=== PATIENT | female | born 1990 ===

== ENCOUNTER 2019-09-25 22:15 | Inpatient (IN) | payer OTHER ==
[~2019-09-25] VITALS: Ht 175.3 cm; Wt 98.9 kg
[2019-09-25] MEDS ORDERED: VENTOLIN HFA [SP8 GM (23:27)
[2019-09-25] MEDS ORDERED: LEVOTHYROXINE150 MCG PO (23:27)
[2019-09-25 23:28] VITALS: BP 160/96; Ht 175.3 cm; Wt 98.9 kg
[2019-09-26] VITALS (15 sets, daily range): BP systolic 114–143; BP diastolic 62–92
[2019-09-26 00:44] LABS: HEMATOCRIT 33.2 % (36.0-48.0); HEMOGLOBIN 10.1 g/dL (12-16); MCH 24.1 pg (26.0-34.0); MCHC 30.4 g/dL (31.0-37.0); MCV 79.2 fL (80.0-100.0); MEAN PLATELET VOLUME 9.5 fL (7.4-10.4); RBC 4.19 10x6/uL (4.00-5.40); RDW 16.2 % (11.5-14.5); WBC 12.4 10x3/uL (4.8-10.8)
--- NOTE | 2019-09-26 03:25 | NUR ---
PT BROUGHT TO ROOM FROM RECOVERY AFTER A C SECTION DELIVERING TWINS. SHE HAS LITTLE FEELING IN ABD AREA NOW SO NO C/P PAIN. INCISION IS CLEAN AND DRY. LOCHIA IS SMALL. FUNDUS IS FIRM 2-3 FINGERS DOWN. SHE HAS IV PIT RUNNING AT 125ML/HR. SHE IS DRINKIN WATER AND HAS NO N/V.
--- NOTE | 2019-09-26 05:49 | NUR ---
PT HAS STARTED HURTING RATING HER PAIN A 9. CALLED DR. ADAMSON FOR PAIN MEDS TO BE ORDERED. PT WAS GIVEN 1 MG OF DILAUDID IV AND TORADOL 30 MG IV. SHE IS RESTING IN HER ROOM. SHE HAS BEEN GIVEN AN INCENTIVE SPIROMENTER AND INSTRUCTIONS GIVEN. SHE IS TRYING TO COUGH AND THIS HURTS. I GAVE HER A PILLOW TO SPLINT HER INCISION.
--- NOTE | 2019-09-26 06:17 | NUR ---
PT IS FEELING A LITTLE BETTER NOW AFTER PAIN MED. SHE IS RESTING QUIETLY.
--- NOTE | 2019-09-26 07:26 | NUR ---
DOZING WHEN ENTERED ROOM. PT AWAKENS EASILY AND VERBAL RESDPONSES APPRO TO QUESTIONS. VALDEZ AT WILL. ABD SOFT- BOWEL SOUNDS HYPOACTIVE. NOTED MOD LOCHIA ON PADS. NURSE IN REPORT STATES THAT PAD HAS NOT BEEN CHANGED SINCE ARRIVAL. ALLL PADS CHANGED AND DELFINA CARE DONE. PT ABLE TO MOVE SELF ABOUT IN BED. NO REQUESTS AT THIS TIME. ASSESSMENT AND VS DONE.
--- NOTE | 2019-09-26 08:20 | NUR ---
DR ADAMSON IN ROOM TO SEE PT- PT ASLEEP.
--- NOTE | 2019-09-26 08:46 | NUR ---
VS DONE. SCANT LOCHIA NOTED ON PAD. FUNDUS UU/FIRM. DRANK 550 CC LIQ BREAKFAST.
--- NOTE | 2019-09-26 10:00 | NUR ---
ENTERED ROOM- PT RESTING WITH EYES CLOSED. AWAKENS WHEN NAME CALLED- ASK IF NEEDED ANY PAIN MEDICATION. PT STATES YES AND REQUESTS THE STRONGER DOSE SINCE FIRST DOSE OF 1 MG DID "NOT HELP ALOT". RATES PAIN A 7 ON SCALE OF 0-10.
--- NOTE | 2019-09-26 12:08 | NUR ---
PT AWAKE AND STATES SHE IS READY TO BE NORMALIZED. SPENCER OUT-SALINE LOCK AND PO PAIN MEDS. STATES PAIN IS BETTER-4 ON SCALE OF 0-10.
--- NOTE | 2019-09-26 12:33 | NUR ---
IV CHANGED TO SALINE LOCK- FLUSHED WITH NS. SPENCER CATH REMOVED POST BULB DEFLATED. 1100 CC EMPTIED FROM BAG.
--- NOTE | 2019-09-26 13:09 | NUR ---
AWAKENS WHEN DOOR OPEN- DENIES NEEDS. ATE 100% OF REG DIET.
--- NOTE | 2019-09-26 14:04 | NUR ---
RINGS CALL LIGHT- STATES IS FEELS LIKE SHE IS HAVING TROUBLE BREATHING -STATES HAS ASTHMA AND REQUESTING BREATHING TREATMENT LIKE LAST NIGHT.
--- NOTE | 2019-09-26 14:14 | NUR ---
RT NOTIFIED FOR UPDRAFT. STATES WILL BE HERE SHORTLY.
--- NOTE | 2019-09-26 14:20 | NUR ---
UP TO BATHROOM TO VOID- VOIDED 100CC URINE INTO CONTAINER- SMALL LOCHIA ALSO- PERICARE DONE. RETURNS TO BED. RT HERE FOR EVA KRAUSE.
--- NOTE | 2019-09-26 14:29 | NUR ---
DENIES WANTING PAIN MEDICATION NOW.
--- NOTE | 2019-09-26 14:40 | NUR ---
PT STATES FEELS BETTER AFTER UPDRAFT. PT AMBULATORY TO NURSERY TO SEE BABIES.
--- NOTE | 2019-09-26 15:50 | NUR ---
PT RETURNS TO ROOM. DENIES WANTING ANY PAIN MEDICATION.
--- NOTE | 2019-09-26 16:15 | NUR ---
PT ASLEEP -RESP REG AND EVEN.
--- NOTE | 2019-09-26 17:52 | NUR ---
PT ASLEEP BUT AWAKENS WHEN ENTER ROOM. HAS BEEN UP AND ABOUT IN ROOM. VOIDED 200CC INTO CONTAINER. ENCOURAGED TO DRINK SOME MORE WATER. DENIES NEEDS AT THIS TIME.
--- NOTE | 2019-09-26 19:00 | NUR ---
REPORT GIVEN BY JEN ALARCON RN
--- NOTE | 2019-09-26 19:35 | NUR ---
PT C/O OF PAIN. PERCOCET 10 MG GIVEN PO. PT NEEDED FRESH WATER WHICH WAS SERVED.
--- NOTE | 2019-09-26 20:20 | NUR ---
PT ASSESSMENT COMPLETE. PT IS VERY SLEEPY IN BED. SHE HAS BEEN SLEEPY MOST OF THE DAY. FUNDUS IS FIRM. LOCHIA SMALL. PT WAS UP TO THE BR A LITTLE EARLIER AND VOIDED [address] IN RIGHT ARM. I TOLD THE PT THAT SHE COULD GET UP ANY TIME FOR A SHOWER. I LET HER KNOW THAT WE'D NEED TO TAKE THE DRESSING OF BEFORE. SHE REALLY DID NOT ACT INTERESTED. HER IS IN THE ROOM AND I ENCOURAGED HIM TO GET PT UP TO WALK. EXPLAINED THE REASONS FOR AMBULATING.
--- NOTE | 2019-09-26 22:00 | NUR ---
PT RESTING QUIETLY IN BED. AT BEDSIDE.
[2019-09-27] VITALS (7 sets, daily range): BP systolic 120–142; BP diastolic 77–93
--- NOTE | 2019-09-27 00:45 | NUR ---
VS TAKEN EARLIER AND CHARTED. ASKED PT IF SHE NEEDED TO GET UP TO BATHROOM. I WALKED WITH HER TO THE BR. SHE IS SLOW BUT AMBULATES WELL. SHE VOIDED A LARGE AMT. SHE STATES HER LOCHIA IS SMALL WHEN SHE CHANGED HER PADS IN THE BR. WHEN SHE GOT BACK TO BED SHE WAS SHAKING ALL OVER. I ASKED WHAT WAS WRONG AND SHE SAID THE PAIN LEVEL WAS HIGH AFTER WALKING TO THE BR. SHE RECEIVED PERCOCET 10 MG PO AND TORADOL 3O MG IV FOR PAIN. WHEN I LEFT THE ROOM SHE WAS PLAYING GAMES ON HER TELEPHONE.
--- NOTE | 2019-09-27 02:09 | NUR ---
PT RESTING QUIETLY. NO NEW C/O
--- NOTE | 2019-09-27 04:00 | NUR ---
VS TAKEN AND RECORDED. PT REQUESTED FRESH WATER AND IT WAS DELIVERED
[2019-09-27 05:08] LABS: RAPID PLASMA REAGIN Non Reactive (Non Reactive)
--- NOTE | 2019-09-27 05:46 | NUR ---
PT IS RESTINGI QUIETLY. NO C/O
--- NOTE | 2019-09-27 09:30 | NUR ---
0930 REQUESTING UPDRAFT NOTIFIED BRIE VALDOVINOS WHO INITIATED UPDRAFT INFORMED PATIENT SHE CAN ASK FOR UPDRAFT WHEN DEEMED NEEDED
[2019-09-27 12:06] LABS: HEMATOCRIT 31.4 % (36.0-48.0); HEMOGLOBIN 9.5 g/dL (12-16); LYMPHOCYTES 14.8 % (15-50); MCH 23.8 pg (26.0-34.0); MCHC 30.3 g/dL (31.0-37.0); MCV 78.7 fL (80.0-100.0); MEAN PLATELET VOLUME 8.8 fL (7.4-10.4); NEUTROPHILS 76.6 % (40-80); PLATELET COUNT 328 10x3/uL (130-400); RBC 3.99 10x6/uL (4.00-5.40); RDW 15.6 % (11.5-14.5); WBC 12.3 10x3/uL (4.8-10.8)
--- NOTE | 2019-09-27 12:52 | NUR ---
0700 AWAKE ALERT IN BED SPOUSE ASLEEEP ON COUCH VOICES NO COMPLAINTS AT THIS TIME ASSESSMENT COMPLETE
--- NOTE | 2019-09-27 12:53 | NUR ---
0800 FUNDUS FIRM BELOW UMBILICUS SUTEURED AND DEMABOND USED FOR CLOSURE OF INCISION NO DRAINAGE NOTED
--- NOTE | 2019-09-27 12:57 | NUR ---
0900 DR BURNETT IN ROOM SPEAKING WITH THE PATIENT
--- NOTE | 2019-09-27 12:58 | NUR ---
1014 C/O PAIN 10/28 PERCOCET 5MG PO GIVEN
--- NOTE | 2019-09-27 15:34 | NUR ---
1200 PATIENT RRESTING QUIETLY IN BED. STATED THAT SHE HAD VOIDED 3 TIMES THIS AM
--- NOTE | 2019-09-27 16:09 | NUR ---
1400 BABIES IN ROOM WITH MOTHER AND FATHER
--- NOTE | 2019-09-27 16:18 | NUR ---
1602 C/O INCISIONAL PAIN 12/28 PERCOCET 10MG PO GIVEN
--- NOTE | 2019-09-27 17:29 | NUR ---
1637 REASSESSMENT OF PAIN RELIEF PATIENT STATES HER PAIN IS NOW 3/10 AFTER TAKING PERCOCET 10MG EARLIER
--- NOTE | 2019-09-27 19:12 | NUR ---
RECEIVED SHIFT REPORT FROM DAY SHIFT, INFORMED PT THAT I WILL BE BACK SHORTLY TO DO ASSESSMENT, PT VERBALIZES UNDERSTANDING, DENIES NEEDS AT THIS TIME, INFANTS IN OPEN CRIB CART AT BEDSIDE
--- NOTE | 2019-09-27 20:15 | NUR ---
ASSESSMENT PER FLOW SHEET, VS OBTAINED, SALINE LOCK IN RIGHT FA INTACT WITH NO REDNESS OR EDEMA, FF, ML, U/2, PT REPORTS LITE BLEEDING WITH NO CLOTS, BIKINI INC WIH DERMABOND CDI WITH NO DRAINAGE NOTED, PT REPORTS FLATUS, NO BM, AND VOIDING WITH NO DIFFICULTY, PT RATES INC PAIN 11/27, WILL ADM PAIN MED, PT REQUESTS BREATHING TREATMENT, INFORMED PT THAT I WILL NOTIFY RESP, PT VERBALIZES UNDERSTANDING, BED IN LOW POSITION, SIDE RAILS X 2, CALL LIGHT IN REACH
--- NOTE | 2019-09-27 20:27 | NUR ---
RESP NOTIFIED FOR BREATHING TREATMENT
--- NOTE | 2019-09-27 20:32 | NUR ---
ADM PERCOCET AND MOTRIN PER MD ORDERS, SEE EMAR, WITH FRESH H20, PT DENIES FURTHER NEEDS, FOB AT BEDSIDE AT THIS TIME
--- NOTE | 2019-09-27 21:30 | NUR ---
PT BREATFEEDING GIRL AT THIS TIME, PT RATES INC PAIN AND CRAMPING 3/10, DENIES NEEDS, BOY INFANT IN OPEN CRIB CART AND FOB AT BEDSIDE
--- NOTE | 2019-09-27 22:29 | NUR ---
PT BOY AT THIS TIME, DENIES NEEDS
[2019-09-28 00:10] VITALS: BP 118/77
--- NOTE | 2019-09-28 00:10 | NUR ---
PT RESTING WITH EYES CLOSED, AROUSES TO SOFT VERBAL STIMULATION, VS OBTAINED, PT RATES INC PAIN /, PT DENIES NEEDS AT THIS TIME, INFANTS IN OPEN CRIB CART AND FOB ASLEEP AT BEDSIDE
--- NOTE | 2019-09-28 02:34 | NUR ---
PT AWAKE INFANT GIRL, ADM PERCOCET AND MOTRIN PER MD ORDERS, SEE EMAR, WITH FRESH H20 AND LEMON NAK[place] SODA, PT DENIES FURTHER NEEDS, FOB ASLEEP ON COUCH
--- NOTE | 2019-09-28 04:28 | NUR ---
DR BURNETT ON UNIT, DID ROUNDING, ORDER FOR DISCHARGE AND MAY ROOM IN IF INFANTS ARE NOT DISCHARGED TODAY
[2019-09-28 04:43] VITALS: BP 133/77
--- NOTE | 2019-09-28 04:43 | NUR ---
PT RESTING WITH EYES CLOSED, AROUSES TO SOFT VERBAL STIMULATION, VS OBTAINED, PT INFORMED OF DISCHARGE ORDER AND ALSO ABOUT ROOMING IN IF INFANTS ARE NOT DISCHARGED TODAY, PT VERBALIZES UNDERSTANDING, RATES INC PAIN 2/10, DENIES NEEDS AT THIS TIME, INFANTS IN OPEN CRIB CART AND FOB ASLEEP ON COUCH
--- NOTE | 2019-09-28 06:20 | NUR ---
PT BOTTLE FEEDING BABY BOY INFANT, RATES PAIN 2/10, DENIES NEEDS AT THIS TIME, OTHER INFANT IN OPEN CRIB CART AND FOB AT BEDSIDE
[2019-09-28 07:00] VITALS: BP 148/99
[2019-09-28] MEDS ORDERED: PERCOCET 5-3251 TAB PO (08:12)
[2019-09-28 11:00] VITALS: BP 101/54
--- NOTE | 2019-09-28 12:33 | NUR ---
0700 AWAKE ALERT SITTING UP IN BED VSS ASSESSMENT COMPLETE LOCHIA SCANT FUNDUS FIRM 2 FB THE UMBILICUS STATED THAT SHE DID NOT SHOWER DURING THE NIGHT AND WILL SHOWER TODAY ABDOMINAL INCISION WITH DURABOND CLOSURE NOTED INTACT NO DRAINAGE NOTED FROM SURGICAL SITE.
--- NOTE | 2019-09-28 12:39 | NUR ---
0800 PATIENT IN BED FEEDING ONE TWIN WHILE SPOUSE SITTING ON SOFA FEEDING THE OTHER TWIN
--- NOTE | 2019-09-28 13:25 | NUR ---
0855 C/O OF INCISIONAL PAIN 12/28 PERCOCET 10 MG PO AND MOTRIN 600 MG PO GIVEN
--- NOTE | 2019-09-28 13:27 | NUR ---
1000 REASSESSMENT OF PAIN IS 07/28
--- NOTE | 2019-09-28 13:28 | NUR ---
1100 SLEEPING AWAKENED TO TAKE VITAL SIGNS
--- NOTE | 2019-09-28 15:34 | NUR ---
1200 LUNCH DELIVERED APPETITE GOOD
--- NOTE | 2019-09-28 15:36 | NUR ---
1302 DIACHARGE PAPERS SIGNED VERBAL AND WRITTEN DISCHARGE INSTRUCTIONS PROVIDED PT VERBALIZED UNDERSTANDING
--- NOTE | 2019-09-28 15:37 | NUR ---
1312 TRANSPORTED THRU ER ENTRANCE TO SPOUSE WAITING IN CAR. BOTH BABIES WERE STRAPPED INTO SAFETY CAR SEATS SECURED IN PLACE BY SEATBELT USE.
--- NOTE | 2019-09-29 16:56 | MORECARE ---
CASE MANAGEMENT DISCHARGE SUMMARY PATIENT: AIDA BUENO UNIT: [id number] ADM DATE: 09/25/19 AGE: 29 : 88 SEX: F ROOM/BED: D.1257 AUTHOR: LELAND HESS PHYSICIAN: REFERRING PHYSICIAN: CUCO ADAMSON MD DATE OF SERVICE: 09/29/19 Discharge Plan Patient Name: AIDA BUENO Facility: [facility]:[place] : 1990 Planned Disposition: Home Anticipated Discharge Date: 09/28/19 Discharge Date: 09/28/2019 Expected LOS: 3 Initial Reviewer: [email or web address] Initial Review Date: 09/25/2019 Generated: 09/29/19 5:56 pm Patient Name: AIDA BUENO Page [id number] at [id number] All edits/amendments must be made on the electronic document DICTATION DATE: 09/29/191655 KICK PLATE INSTALLER: BOBBY 09/29/191655 RPT#: [id number] DC DATE:09/28/19 STATUS: DIS IN [facility] [address] [place] [address] END OF REPORT
== END 2019-09-28 18:00 | disposition home or self-care (01) | DRG 788 ==
LOC: D.LDO 22:15 → D.LD 22:40
PROVIDERS: Student in an Organized Health Care Education/Training Program; ADMIT Obstetrics & Gynecology; ATTEND Obstetrics & Gynecology
PROC: 10D00Z1 Extraction of Products of Conception, Low, Open Approach (ICD-10-PCS; principal; 2019-09-26 01:54)
DX: O30.003 Twin pregnancy, unspecified number of placenta and unspecified number of amniotic sacs, third trimester (principal); Z3A.34 34 weeks gestation of pregnancy; Z37.2 Twins, both liveborn; O32.1XX2 Maternal care for breech presentation, fetus 2